=== PATIENT | female | born 1975 | race Caucasian/White ===

== ENCOUNTER 2022-06-11 10:28 | Outpatient (CLI) | payer MEDICAID, SELFPAY ==
--- NOTE | ~2022-06-11 | CT_ITS ---
EXAMINATION: CT soft tissue neck chest w DATE: 06/11/2022 10:55 INDICATION: Left neck mass. TECHNIQUE: Computed tomography (CT) of the neck and chest was performed with 75 mL Omnipaque-350 intr avenous contrast. Automated exposure control and iterative reconstruction technique were employed. Th e dose-length product was 498.91 mGy-cm. COMPARISON: Neck CT 09/29/2014 FINDINGS: CT NECK: There are no pathologically enlarged lymph nodes. There is minimal plaque in the proximal in ternal carotid arteries with 0% stenosis relative to normal distal artery lumen diameters. There is m ild mucosal thickening in the paranasal sinuses. The mastoid air cells are normal. There are carious lesions of most of the remaining teeth. There is mild cervical spondylosis. CT CHEST: There is mild emphysema. There is mild atelectasis bilaterally. There is a 5 mm part solid nodule in left upper lobe, likely benign. The heart size is normal. No pericardial effusion. There is mild thoracic spondylosis. IMPRESSION: 1. No etiology for the patient's symptoms. 2. Mild emphysema. 3. Dental disease. Reviewed, dictated and finalized at location A.
== END 2022-06-11 10:29 | disposition home or self-care (01) ==
LOC: ANHIMG 10:31
PROVIDERS: PCP Family Medicine; Visit Provider Otolaryngology
DX: K11.8 Other diseases of salivary glands (principal); R22.1 Localized swelling, mass and lump, neck; J43.9 Emphysema, unspecified; K08.9 Disorder of teeth and supporting structures, unspecified
CPT/HCPCS: 70491; 71260; Q9967